=== PATIENT | male | born 1945 | race African-American/Black ===

== ENCOUNTER 2023-03-27 07:53 | Day surgery (SDC) | payer OTHER ==
[2023-03-26 11:10] VITALS: BMI 28.8
[2023-03-27 08:46] LABS: Hematocrit 34.1 % (38.8-50.0); Hemoglobin 11.1 g/dL (13.5-17.5)
[2023-03-27] MEDS ORDERED: Midazolam HCl 2 mg/2 ml Vial ONE (09:59)
[2023-03-27] MEDS ORDERED: PROPOFOL 20 ML ONE (09:59)
[2023-03-27] MEDS ORDERED: Lidocaine 1% PF 5 ML VIAL ONE (09:59)
[2023-03-27] MEDS ORDERED: Rocuronium Bromide 10 MG/ML (10ML VIAL) ONE (09:59)
[2023-03-27] MEDS ORDERED: Ondansetron PF 4 MG/2 ML Vial ONE (09:59)
[2023-03-27] MEDS ORDERED: Fentanyl 250 MCG/5 ML VIAL ONE (09:59)
[2023-03-27] MEDS ORDERED: Dexamethasone 20 MG/5 ML VIAL ONE (09:59)
[2023-03-27] MEDS ORDERED: EPINEPHrine 1 MG/ML AMP ONE (10:05)
[2023-03-27] MEDS ORDERED: CEFAZOLIN 2 GM VIAL ONE (10:19)
[2023-03-27] MEDS ORDERED: Lidocaine 1% w/Epinephrine 1:100K 20 ML VIAL ONE (10:28)
[2023-03-27] MEDS ORDERED: Mupirocin 2% Ointment 22 GM Tube ONE (10:58)
[2023-03-27] MEDS ORDERED: HYDROcodone/Acetaminophen 5/325 mg Tablet ONE (13:45)
== END 2023-03-27 14:25 | disposition home or self-care (01) ==
LOC: CSHSDC 07:53
PROVIDERS: ATTEND Otolaryngology Plastic Surgery within the Head & Neck
PROC: F0BZ09Z Cochlear Implant Rehabilitation Treatment using Cochlear Implant Equipment (ICD-10-PCS; principal; 2023-03-27)
DX: H90.3 Sensorineural hearing loss, bilateral (principal)
CPT/HCPCS: 69930; 70250; 85014; 85018; 93005; L8614 ×2; Q9968; 36415; 93010; J0171; J1100; J2250; J2405; J2704; J3010